=== PATIENT | female | born 1965 | race Caucasian/White ===

== ENCOUNTER 2019-04-03 12:26 | Emergency (ER) | payer BC ==
[2019-04-03 13:41] VITALS: BP 138/79
--- NOTE | 2019-04-03 13:55 | UC ---
Respiratory Complaint HPI - HPI Summary HPI Summary: 53 yo female presents with sore throat, hoarse voice, and post nasal drip for the last 5 days. She has been tolerating po well and eating/drinking well. Has not been taking anything OTC for her symptoms. Denies fever, chills, sinus symptoms, cough, rash. - History of Current Complaint Chief Complaint: UCRespiratory Stated Complaint: CHEST CONGESTION SORE THROAT Time Seen by Provider: 04/03/19 13:55 Hx Obtained From: Patient Onset/Duration: Gradual Onset Severity Initially: Mild Severity Currently: Mild Pain Intensity: 1 Pain Scale Used: 0-10 Numeric - Allergies/Home Medications Allergies/Adverse Reactions: Allergies Allergy/AdvReac Type Severity Reaction Status Date / Time No Known Allergies Allergy Verified 04/03/19 13:41 PMH/Surg Hx/FS Hx/Imm Hx - Additional Past Medical History Additional PMH: None - Surgical History Surgical History: None - Family History Known Family History: Positive: None - Social History Occupation: Employed Full-time Lives: With Family Alcohol Use: Weekly Substance Use Type: None Smoking Status (MU): Never Smoked Tobacco Review of Systems All Other Systems Reviewed And Are Negative: Yes Constitutional: Positive: Negative Skin: Positive: Negative Eyes: Positive: Negative ENT: Positive: Sore Throat Respiratory: Positive: Negative Cardiovascular: Positive: Negative Gastrointestinal: Positive: Negative Neurological: Positive: Negative Psychological: Positive: Negative Physical Exam - Summary Physical Exam Summary: GENERAL: NAD. WDWN. No pain distress. SKIN: No rashes, sores, lesions, or open wounds. HEENT: Head: AT/NC Eyes: Conjunctiva clear without inflammation or discharge. Ears: Hearing grossly normal. TMs intact, no bulging, erythema, or edema. Nose: Nasal mucosa pink and moist. NTTP maxillary and frontal sinus. Throat: Posterior oropharynx mild erythema and 2+ tonsillar enlargement. No exudates. Uvula midline. Slight hoarse voice NECK: Supple. Mildly TTP anterior cervical LAD CHEST: CTAB. No r/r/w. No accessory muscle use. Breathing comfortably and in no distress. CV: RRR. Without m/r/g. Pulses intact. Cap refill <2seconds NEURO: Alert. PSYCH: Age appropriate behavior. Triage Information Reviewed: Yes Vital Signs: Initial Vital Signs Temp 99 F 04/03/19 13:39 Pulse 88 04/03/19 13:39 Resp 16 04/03/19 13:39 BP 138/79 04/03/19 13:39 Pulse Ox 100 04/03/19 13:39 Laboratory Tests 04/03/19 14:29 Group A Strep Rapid Negative Vital Signs Reviewed: Yes Respiratory Course/Dx - Course Course Of Treatment: POC strep negative. Discussed viral vs bacterial causes. Advised pt to try OTC cold medication and wait to start anbx unless symptoms have not improved in 2-3 days. - Differential Dx/Diagnosis Provider Diagnosis: Laryngitis Discharge - Sign-Out/Discharge Documenting (check all that apply): Patient Departure All imaging exams completed and their final reports reviewed: No Studies - Discharge Plan Condition: Stable Disposition: HOME Prescriptions: Amoxicillin PO (*) [Amoxicillin 500 MG CAP*] 500 mg PO Q12H #14 cap Patient Education Materials: Laryngitis (ED) Referrals: Brie Coats MD [Primary Care Provider] - Additional Instructions: If you develop a fever, shortness of breath, chest pain, new or worsening symptoms - please call your PCP or go to the ED immediately. Your strep test was negative today. If your symptoms do not improve in 2-3 days, please start the antibiotic - Billing Disposition and Condition Condition: STABLE Disposition: Home
== END 2019-04-03 14:49 | disposition home or self-care (01) ==
LOC: UCEAST 12:26
DX: J04.0 Acute laryngitis (principal)
CPT/HCPCS: 87651; 99212; G0463